=== PATIENT | female | born 1945 | race Caucasian/White ===

== ENCOUNTER 2023-04-18 12:53 | Emergency (ER) | payer MEDICARE, SELFPAY ==
[2023-04-18 13:00] VITALS: BP 155/91; PULSE 63; RESP 16; TEMP 36.4; O2SAT 98; BMI 28.5
--- NOTE | 2023-04-18 13:28 | XR_ITS ---
The [address] [address] Patient Name: JORDAN CRUZ MRN: [id number] date: 1945 Sex: F Assigned Patient Location: ER Current Patient Location: ED.MAIN Accession/Order Number: [id number] Exam Date: 04/18/2023 13:40 Report Date: 04/18/2023 13:55 At the request of: BRE GOVEA Procedure: XR foot RT min 3V PROCEDURE: XR foot RT min 3V HISTORY: pt felt a pop while walking on uneven ground ; right foot pain for 6 months; increased pain today in COMPARISON: None. FINDINGS: BONES:Fracture line incompletely extending across base of fifth metatarsal which appears to have corticated margins. No intra-articular extension. SOFT TISSUES:No visible soft tissue swelling. EFFUSION:None visible. OTHER: Negative. IMPRESSION: 1. Suspect incomplete healing of a subacute to chronic base of fifth metatarsal fracture. Acute injury is not excluded but felt less likely. Electronically authenticated by: MARCELLUS GOULD Date: 04/18/2023 13:55
--- NOTE | 2023-04-18 14:14 | ED_ITS ---
HPI - Extremity Injury (Lower) General Chief Complaint: Extremity Injury, Lower Stated Complaint: Pain in right foot Time Seen by Provider: 04/18/23 13:45 Source: patient and family Mode of arrival: walk-in Limitations: no limitations History of Present Illness HPI Narrative: cc - right foot injury Patient said that she had chronic pain for months in the right foot. She saw an orthopedist and had xrays that were negative. Today as she stepped down she felt a pop and immediately had pain down along the right 5th metatarsal of the right foot. She had already taken Tylenol earlier this morning. She cannot ta ke NSAIDs. When this happened she came to the ED right away and has not taken anything else for pain since the injury. Related Data Allergies Allergy/AdvReac Type Severity Reaction Status Date / Time clarithromycin [From Biaxin] Allergy Intermediate Verified 04/18/23 13:11 ibuprofen Allergy Intermediate Verified 04/18/23 13:11 levofloxacin Allergy Intermediate Verified 04/18/23 13:11 sulfamethoxazole Allergy Intermediate Verified 04/18/23 13:11 [From Bactrim] trimethoprim [From Bactrim] Allergy Intermediate Verified 04/18/23 13:11 flagyl Allergy Intermediate Uncoded 04/18/23 13:11 PFSH PFSH Social History Smoking status: Never smoker Exam Constitutional: Vital Signs, click to edit/add: Vital Signs - 24 hr 04/18/23 13:00 Temperature 97.6 F Pulse Rate [Monito r] 63 Respiratory Rate 16 Blood Pressure [Le ft Arm] 155/91 H Pulse Oximetry 98 Oxygen Delivery Me thod Room Air Course Vital Signs Vital signs: Vital Signs Temperature 97.6 F 04/18/23 13:00 Pulse Rate 63 04/18/23 13:00 Respiratory Rate 16 04/18/23 13:00 Blood Pressure 155/91 H 04/18/23 13:00 Pulse Oximetry 98 04/18/23 13:00 Oxygen Delivery Method Room Air 04/18/23 13:00 Temperature 97.6 F 04/18/23 13:00 Pulse Rate 63 04/18/23 13:00 Respiratory Rate 16 04/18/23 13:00 Blood Pressure 155/91 H 04/18/23 13:00 Pulse Oximetry 98 04/18/23 13:00 Oxygen Delivery Method Room Air 04/18/23 13:00 MDM - Extremity Injury (Lower) MDM Narrative Medical decision making narrative: xrays of the right foot reveal a 5th metatarsal fracture - radiologist is uncertain if this is subacute or chronic but with the patient's history I will treat this as a new fracture. ED nurse placed a CAM boot onto the patient's right foot. She will see her orthopedist back home. Prescribed [place] for pain. Discharge Plan Discharge Chief Complaint: Extremity Injury, Lower Clinical Impression: Closed fracture of fifth metatarsal bone of right foot Patient Disposition: Home, Self-Care Time of Disposition Decision: 14:19 Condition: Good Instructions: Foot Fracture in Adults (ED) Stand Alone Forms: Portal Instructions
--- NOTE | 2023-04-18 15:15 | ED.LOWEXI1 ---
HPI - Extremity Injury (Lower) General Chief Complaint: Extremity Injury, Lower Stated Complaint: Pain in right foot Time Seen by Provider: 04/18/23 13:45 Source: patient and family Mode of arrival: walk-in Limitations: no limitations Related Data Allergies Allergy/AdvReac Type Severity Reaction Status Date / Time clarithromycin [From Biaxin] Allergy Intermediate Verified 04/18/23 13:11 ibuprofen Allergy Intermediate Verified 04/18/23 13:11 levofloxacin Allergy Intermediate Verified 04/18/23 13:11 sulfamethoxazole Allergy Intermediate Verified 04/18/23 13:11 [From Bactrim] trimethoprim [From Bactrim] Allergy Intermediate Verified 04/18/23 13:11 flagyl Allergy Intermediate Uncoded 04/18/23 13:11 PFSH PFSH Social History Smoking status: Never smoker Exam Constitutional: Vital Signs, click to edit/add: Vital Signs - 24 hr 04/18/23 13:00 Temperature 97.6 F Pulse Rate [Monito r] 63 Respiratory Rate 16 Blood Pressure [Le ft Arm] 155/91 H Pulse Oximetry 98 Oxygen Delivery Me thod Room Air Course Vital Signs Vital signs: Vital Signs Temperature 97.6 F 04/18/23 13:00 Pulse Rate 63 04/18/23 13:00 Respiratory Rate 16 04/18/23 13:00 Blood Pressure 155/91 H 04/18/23 13:00 Pulse Oximetry 98 04/18/23 13:00 Oxygen Delivery Method Room Air 04/18/23 13:00 Temperature 97.6 F 04/18/23 13:00 Pulse Rate 63 04/18/23 13:00 Respiratory Rate 16 04/18/23 13:00 Blood Pressure 155/91 H 04/18/23 13:00 Pulse Oximetry 98 04/18/23 13:00 Oxygen Delivery Method Room Air 04/18/23 13:00 Discharge Plan Discharge Chief Complaint: Extremity Injury, Lower Clinical Impression: Closed fracture of fifth metatarsal bone of right foot Patient Disposition: Home, Self-Care Time of Disposition Decision: 14:19 Condition: Good Instructions: Foot Fracture in Adults (ED) Stand Alone Forms: Portal Instructions Discharge Date/Time: 04/18/23 15:14
== END 2023-04-18 15:14 | disposition home or self-care (01) ==
PROVIDERS: Emergency Provider Emergency Medicine
DX: S92.351A Displaced fracture of fifth metatarsal bone, right foot, initial encounter for closed fracture (principal); X50.9XXA Other and unspecified overexertion or strenuous movements or postures, initial encounter
CPT/HCPCS: 73630; 99283